=== PATIENT | female | born 1945 | race Caucasian/White ===

== ENCOUNTER 2025-07-16 16:07 | Emergency (ER) | payer MEDICARE, SELFPAY ==
[2025-07-16 16:07] VITALS: BP 138/84; PULSE 83; RESP 18; TEMP 36.7; O2SAT 98; BMI 23.0
[2025-07-16 16:24] VITALS: PULSE 86; RESP 18; O2SAT 98
--- NOTE | 2025-07-16 16:33 | PC.NURSE ---
Patient to er from [facility], c/o 04/08 right upper leg and right knee pain x 6 days, patient denies trauma, no h/o falls, skin is warm dry and sliglty pale, chart up to be seen by er provider.
--- NOTE | 2025-07-16 16:55 | XR_ITS ---
EXAMINATION: Right femur 2 views TECHNIQUE: AP lateral right femur 2 views Date and time: July 16, 2025, 1655 hours INDICATIONS: Pain with standing involving the right femur today. 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
--- NOTE | 2025-07-16 16:57 | EDNOTE_ITS ---
ED General RME/HPI General Chief complaint: Extremity Injury, Lower Stated complaint: LEG PAIN Time Seen by Provider: 07/16/25 16:13 Arrival date/time: 07/16/25 16:07 CC: Right upper leg pain HPI patient states onset of pain approximately last Wednesday after pushing a chair out of the way while in her wheelchair. 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 Within 24 hours patient experienced pain in the upper right leg. It is site specific to the distal portion of the quadriceps and lateral aspect of the quadricep. No pain in the calf no swelling. Ongoing for past several days patient presents to the ER via EMS who report stable vital signs patient is awake alert and oriented nontoxic-appearing and not in any acute distress. Note: Patient is not on any blood thinners. Related Data Previous Rx's ?Medication ?Instructions ?Recorded meloxicam 7.5 mg tablet 7.5 mg PO QDAY #20 tabs 06/30 03/23 Allergies Allergy/AdvReac Type Severity Reaction Status Date / Time Sulfa (Sulfonamide Allergy Unknown UNKNOWN Unverified 09/19/11 00:34 Antibiotics) Review of Systems Review of Systems Narrative Review of Systems: GEN: No fever, no chills, no weight loss EYES: No discharge, no visual changes, no pain HEENT: No ear pain, no congestion, no sore throat PULM: No shortness of breath, no cough, no congestion CV: No chest pain, no dyspnea on exertion, no palpitations GI: No nausea, no vomiting, no diarrhea, no pain, no constipation : No frequency, no urgency, no dysuria MUSC/SKEL: No joint pain, no back pain, + leg pain SKIN: No rash PSYCH: No hallucinations, no depression HEME/LYMPH: No easy bleeding or bruising tendencies NEURO: No weakness, no headache Past Medical History Past Medical History NEUROLOGIC: Positive Neurological Disorders and Cerebrovascular Accident (left sided weakness deficit, 2011) CARDIAC: Positive Hypercholesterolemia and Hypertension; Negative Congestive Heart Failure RESPIRATORY: Negative Chronic Obstructive Pulmonary Disease (COPD) GENITOURINARY: Negative Renal Disease ENDOCRINE: Negative Diabetes Mellitus Type 1 or Diabetes Mellitus Type 2 Surgical History SURGICAL: Positive Hysterectomy (1982, do to cervical cancer no chemo or radiation) OTHER SURGICAL HX: removal cyst to right ovary 1985 Social History SMOKING STATUS: Former smoker ED Exam Narrative Physical exam: [General: Not in any acute distress Head normocephalic HEENT: Within acceptable limits Neck is supple nontender Chest equal chest rise nontender to palpation Respiratory: Clear to auscultation no wheezes crackles or rubs CV: Rate rhythm is regular no murmurs rubs or clicks Abdomen is soft nontender no masses positive bowel sounds all 4 quadrants Back: No CVA tenderness no spinous process tenderness from cervical spine thoracic and lumbar spine Skin: Intact no petechiae rash induration ulceration or crepitus Extremities: Decreased range of motion of left lower extremity secondary old CVA, strength is 2 out of 5, right lower extremity strength is 5 out of 5 full range of motion including straight relays. Tenderness to palpation to the distal quadricep, and lateral aspect of the quadricep no significant edema or erythema or ecchymosis. No posterior fossa tenderness with palpation no calf tenderness with palpation no red streaks erythema or tenderness in the medial aspect of the thigh. Cap refill in the toes less than 2 seconds neurosensory intact. Moving upper extremities against resistance cap refill less than 2 seconds neurosensory intact Neuro: Awake alert oriented x3 Course Course Course Narrative: Patient needs a follow-up outpatient with pre and post MRI of the femur and then follow-up with primary care doctor with the results of that. Patient and [facility] power of deputy attorney general at bedside are both made aware of this. Will discharge the patient home with a copy of the read to follow-up with the PCP for outpatient referral. Quality Measures none Orders Category Date Time Status US venous doppler LE RT Stat Exams 07/16/25 17:00 Completed XR femur RT 2V Stat Exams 07/16/25 16:55 Completed Vital Signs Vital signs: Vital Signs Temperature 98.1 F 07/16/25 16:07 Pulse Rate 83 07/16/25 16:07 Respiratory Rate 18 07/16/25 16:07 Blood Pressure 138/84 H 07/16/25 16:07 Pulse Oximetry (%) 98 07/16/25 16:07 Oxygen Delivery Method Room Air 07/16/25 16:07 Discharge Plan Plan Patient Disposition: HOME (Self Care) Patient condition on transfer: Stable Prescriptions/Referrals Prescriptions/Med Rec: New meloxicam 7.5 mg tablet 7.5 mg PO QDAY Qty: 20 0RF Referrals: No Primary/Family,Physician [Referring Provider] - In 1 week Marcelo Zimmer MD [Primary Care Provider, Family Practice] - In 1 week Problem List Clinical Impression: Osteolytic lesion, Pain in right femur Patient/Caregiver Discharge Instructions Other Activity Instructions:: Plain film of your femur shows an osteolytic metastasis, that requires MRI outpatient basis. Please follow-up. Avoid any heavy weight on the leg. Use the leg only for transfers that are necessary. If there is a worsening of symptoms return to the emergency room for reevaluation. Will prescribe you meloxicam. Take this instead of the Tylenol see if you get temporary pain relief. Print Language: Occitan Stand Alone Forms: Carlie Award Info., Patient Portal Info Letter, Work/School Release PA/PHOTOTYPESETTING EQUIPMENT MONITOR Supervising Physician PA/PHOTOTYPESETTING EQUIPMENT MONITOR Supervising Physician: Fransico Pace ENP [facility] Meds/Rx considered, not ordered None Labs/Rad/Tests considered, not ordered None EKG EKG not done Labs Labs: none Imaging Imaging interpretation: interpreted by me Imaging Interpretation(s): Ultrasound is negative for DVT X-ray of the femur is positive for osteolytic metastasis at a site that corresponds with the patient's clinical complaint.
--- NOTE | 2025-07-16 17:00 | XR_ITS ---
Examination: Duplex scan of the lower extremity, unilateral right Date and time of exam: July 16, 2025, 1827 hours INDICATIONS: Right leg and thigh pain with standing today Technique: Duplex scan of the extremity veins using B-mode/grayscale imaging and Doppler spectral analysis and color flow Attention is directed to internal echogenicity, compression and augmentation involving these veins, color flow assessment, spectral analysis Findings: Major deep venous structures in the extremity demonstrate normal course and caliber. There is no evidence of deep vein thrombosis. Normal color flow and spectral analysis Impression: Negative for DVT..
[2025-07-16 18:42] VITALS: BP 149/88; PULSE 76; PULSE 78; RESP 18; TEMP 36.8; O2SAT 98
[2025-07-16] MEDS: IBUPROFEN TAB 600 MG TABLET PO (20:13)
[2025-07-16 21:05] VITALS: BP 172/65; PULSE 76; RESP 18; TEMP 36.7; O2SAT 99
== END 2025-07-16 21:06 | disposition home or self-care (01) ==
PROVIDERS: Emergency Provider Emergency Medicine; PCP Family Medicine
DX: M89.551 Osteolysis, right thigh (principal)
CPT/HCPCS: 73552; 93971; 99283; A9270

== ENCOUNTER 2025-07-24 10:50 | Emergency (ER) | payer MEDICARE, SELFPAY ==
[2025-07-24 10:51] VITALS: PULSE 76; RESP 18; O2SAT 98; BMI 26.5
--- NOTE | 2025-07-24 10:54 | XR_ITS ---
EXAMINATION: XR chest 1V ORDERING PROVIDER: Angie Day MD HISTORY: cp TECHNIQUE: Single portable AP radiograph of the chest. COMPARISON: 09/23/2011, chest radiographs. FINDINGS: Cardiac silhouette not enlarged. Calcifications aortic arch. Emphysematous changes. 10.8 cm masslike opacity apical segment left upper lobe with scattered underlying air bronchograms. Retrocardiac opacities. Diffuse osteopenia and moderate bony degenerative changes. IMPRESSION: Left upper lobe 10.8 cm masslike opacity and retrocardiac opacities. Recommend correlation with CT chest.
--- NOTE | 2025-07-24 10:54 | XR_ITS ---
EXAMINATION: XR shoulder LT min 2V ORDERING PROVIDER: Angie Day MD HISTORY: pain TECHNIQUE: 3 radiographs of the left shoulder were obtained. COMPARISON: None. FINDINGS: No acute fracture or dislocation. Moderate degenerative changes of the acromioclavicular and glenohumeral joints. Diffuse osteopenia. In the apical segment of the left upper lobe there is a 10.8 cm masslike density. Underlying bronchograms and lung parenchyma is identified. There vasculopathic changes. IMPRESSION: 1. No acute fracture or dislocation. 2. Left upper lobe 10.8 cm masslike density. Recommend correlation with chest CT.
--- NOTE | 2025-07-24 10:54 | EKG_ITS ---
[facility] Test Date: 2025-07-24 Pat Name: CINDY VAUGHN Department: Room: - Gender: Female Change Management Director: : 1945 Requested By: Angie Sheffield Order Number: [id number] Reading MD: Angie Sheffield Measurements Intervals [place] Rate: 88 P: 45 NV: 136 QRS: 26 QRSD: 85 T: 83 QT: 334 QTc: 405 Interpretive Statements SINUS RHYTHM ST DEVIATION AND MODERATE T-WAVE ABNORMALITY, CONSIDER ANTERIOR ISCHEMIA [-0.1+ mV T-WAVE IN V3/V4] No previous ECG available for comparison /store/S0/[id number].pdf
--- NOTE | 2025-07-24 10:54 | XR_ITS ---
EXAMINATION: US venous doppler UE LT HISTORY: swelling, dvt COMPARISON: None. FINDINGS: Barajas scale, color doppler, and spectral waveforms of the left upper extremity veins. The imaged veins are unremarkable without evidence of internal thrombus. Spectral Doppler imaging demonstrates normal wave forms. The overlying soft tissues are unremarkable. IMPRESSION: Negative for deep venous thrombosis.
--- NOTE | 2025-07-24 10:57 | PD.EDCHEST ---
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 Patient states the left shoulder pain began 1 week ago, without injury, and remaining constant since. Described as aching in sensation, rating as mild. Patient states the chest pain also began 1 week ago and occurring on/off since onset. Located most to the left side just below the left breast. No known modifying or aggravating factors. Denies any fevers, chills, nausea, vomiting. Related Data Previous Rx's ?Medication ?Instructions ?Recorded meloxicam 7.5 mg tablet 7.5 mg PO QDAY #20 tabs 07/16/25 Allergies Allergy/AdvReac Type Severity Reaction Status Date / Time Sulfa (Sulfonamide Allergy Unknown UNKNOWN Verified 07/24/25 16:25 Antibiotics) Review of Systems Review of Systems Systems Reviewed: All systems reviewed, normal except as documented Past Medical History Past Medical History NEUROLOGIC: Positive Neurological Disorders and Cerebrovascular Accident (2012 left arm contracture) CARDIAC: Positive Hypercholesterolemia and Hypertension OTHER HISTORY: Positive Cancer and Cervical Cancer Surgical History SURGICAL: Positive Hysterectomy Social History SMOKING STATUS: Former smoker ED Exam General Limitations: Present no limitations General appearance: Present alert and in no apparent distress Head Head exam: Present atraumatic and normocephalic Eye Eye exam: Present normal appearance, PERRL and EOMI ENT ENT exam: Present normal exam, normal oropharynx and mucous membranes moist Neck Neck exam: Present normal inspection, full ROM and trachea midline Chest Chest inspection: Present normal inspection and symmetric chest wall rise Respiratory Respiratory exam: Present normal lung sounds bilaterally; Absent respiratory distress Cardiovascular Cardiovascular exam: Present regular rate, normal rhythm and normal heart sounds Abdominal Exam Abdominal exam: Present soft; Absent distention, tenderness or guarding Extremities Exam Extremities exam: Present full ROM and other (Tenderness to the left shoulder, no lesions appreciated , patient with contractures on the left upper extremity, unable to range left upper extremity; no issues with right upper extremity nor bilateral lower extremities) Neurological Exam Neurological exam: Present alert and other (Patient with baseline weakness in the left upper extremity, bedbound secondary to chronic weakness) Psychiatric Psychiatric exam: Present normal affect and normal mood Skin Skin exam: Present warm, dry, intact and normal color Course Quality Measures none Orders Category Date Time Status CT Screening NOW Care 07/24/25 14:44 Active EKG (ED ONLY) *Do not use* NOW Care 07/24/25 10:55 Completed Referral - Aluminizer Stat Cons 07/24/25 17:[address] chest w con Stat Exams 07/24/25 14:43 Completed CXR [XR chest 1V] Stat Exams 07/24/25 10:54 Completed EKG (ED Only) Stat Exams 07/24/25 10:54 Draft US venous doppler UE LT Stat Exams 07/24/25 10:54 Completed XR shoulder LT min 2V Stat Exams 07/24/25 10:54 Completed CBC Stat Lab 07/24/25 11:00 Completed CMP [Comprehensive Metabolic Panel] Stat Lab 07/24/25 11:00 Completed INR [Prothrombin Time with INR] Stat Lab 07/24/25 11:00 Completed Troponin I Stat Lab 07/24/25 11:00 Completed Troponin I Stat Lab 07/24/25 14:26 Completed Aspirin [Ecotrin] Med 07/24/25 14:41 Discontinued 81 mg PO X1 ONE Ringers Lactated 1000 ml [Lactated Ringers] 1,000 ml Med 07/24/25 14:44 Discontinued IV 999 mls/hr Vital Signs Vital signs: Vital Signs Temperature 98.1 F 07/24/25 11:11 Pulse Rate 90 07/24/25 11:11 Respiratory Rate 17 07/24/25 11:11 Blood Pressure 133/73 H 07/24/25 11:11 Pulse Oximetry (%) 95 07/24/25 11:11 Oxygen Delivery Method Room Air 07/24/25 11:11 Pulse ox is 95% on room air which is adequate. Chest Pain MDM Narrative MDM Narrative:: Maryellen Dia am scribing for and in the presence of Dr. Day. Patient is an 79-year-old female this in the emergency department concerns for left shoulder and chest pain. Vital signs and exam as listed. Concern for ACS arrhythmia electrolyte abnormality among others. Ordered labs, EKG, chest x-ray as well as x-ray of the shoulder and upper extremity ultrasound. Offered medication for symptom leaf. EKG performed today at 1117 in the morning notable for sinus rhythm heart rate 88, normal intervals, nonspecific T wave changes, not a cardiac alert. Interpreted by me. Labs without acute hematologic abnormality, no acute evidence of renal dysfunction however patient does have an elevated calcium will provide patient with fluids. Troponin not elevated. Ultrasound of the upper extremity without evidence of DVT. Chest x-ray with evidence of left upper lung mass approximately [address] chest. X-ray of the left shoulder without any acute abnormalities other than redemonstration of the lung mass. Ordered CT scan of the chest that showed a spiculated lung mass involving the vasculature of the mediastinum, as well as metastases to the thoracic spine. Initiated transfer for cardiothoracic surgery. Updated patient, patient in agreement as he is hemodynamically stable not in distress 1800h: Care signed out to Dr. Hart pending transfer. 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, hypertension, diabetes How is presenting disease/condition affected by chronic disease/condition?: exacerbated by Evaluation data The following diagnostics were reviewed and interpreted by me:: lab results, radiology exam(s) and EKG tracing(s) Lab and/or radiology exams considered but not ordered:: None Interpretation Summary: Ordering Physician: Angie Day MD Date of Service: 07/24/25 Procedure(s): XR chest 1V Accession Number(s): [id number] cc: Pablo San MD; Marcelo Zimmer MD; Angie Day MD~ EXAMINATION: XR chest 1V ORDERING PROVIDER: Angie Day MD HISTORY: cp TECHNIQUE: Single portable AP radiograph of the chest. COMPARISON: 09/23/2011, chest radiographs. FINDINGS: Cardiac silhouette not enlarged. Calcifications aortic arch. Emphysematous changes. 10.8 cm masslike opacity apical segment left upper lobe with scattered underlying air bronchograms. Retrocardiac opacities. Diffuse osteopenia and moderate bony degenerative changes. IMPRESSION: Left upper lobe 10.8 cm masslike opacity and retrocardiac opacities. Recommend correlation with CT chest. Dictated By: Pablo San MD Signed By: <Electronically signed by Pablo San MD in OV> 07/24/25 1240 Ordering Physician: Angie Day MD Date of Service: 07/24/25 Procedure(s): XR shoulder LT min 2V Accession Number(s): [id number] cc: Pablo San MD; Marcelo Zimmer MD; Angie Day MD~ EXAMINATION: XR shoulder LT min 2V ORDERING PROVIDER: Angie Day MD HISTORY: pain TECHNIQUE: 3 radiographs of the left shoulder were obtained. COMPARISON: None. FINDINGS: No acute fracture or dislocation. Moderate degenerative changes of the acromioclavicular and glenohumeral joints. Diffuse osteopenia. In the apical segment of the left upper lobe there is a 10.8 cm masslike density. Underlying bronchograms and lung parenchyma is identified. There vasculopathic changes. IMPRESSION: 1. No acute fracture or dislocation. 2. Left upper lobe 10.8 cm masslike density. Recommend correlation with chest CT. Dictated By: Pablo San MD Signed By: <Electronically signed by Pablo San MD in OV> 07/24/25 1238 Ordering Physician: Angie Day MD Date of Service: 07/24/25 Procedure(s): US venous doppler UE LT Accession Number(s): [id number] cc: Pablo San MD; Marcelo Zimmer MD; Angie Day MD~ EXAMINATION: US venous doppler UE LT HISTORY: swelling, dvt COMPARISON: None. FINDINGS: Barajas scale, color doppler, and spectral waveforms of the left upper extremity veins. The imaged veins are unremarkable without evidence of internal thrombus. Spectral Doppler imaging demonstrates normal wave forms. The overlying soft tissues are unremarkable. IMPRESSION: Negative for deep venous thrombosis. Dictated By: Pablo San MD Signed By: <Electronically signed by Pablo San MD in OV> 07/24/25 1243 Ordering Physician: Angie Day MD Date of Service: 07/24/25 Procedure(s): CT chest w con Accession Number(s): [id number] cc: Amrit Talavera MD; Marcelo Zimmer MD; Angie Day MD~ Examination: CT chest with intravenous contrast 2-D sagittal and coronal reconstructions Exam date and time: July 24, 2025, 1638 hours INDICATIONS: Sudden onset chest pain today, chest x-ray today left upper lobe 10.8 cm masslike opacity and retrocardiac opacities CTDI:vol (mGy) 10.4 DLP: (mGycm) 247 Technique: Multiple axial sections of the thorax have been obtained. Sections have been obtained, 3 mm slice thickness. Mediastinal and lung density settings have been obtained. Intravenous contrast administered, 60 cc Isovue-370. 2-D sagittal, coronal images obtained. Low dose protocols were performed. One or more of the following dose reduction techniques were used; automated exposure control, adjustment of the mA and/or KV according to patient size, use of iterative reconstruction technique. Findings: Left upper lobe pulmonary mass spiculated margins, 9.1 x 9.5 x 7.4 cm This mass is invading the left mediastinum in the tracheobronchial region and compressing the left main pulmonary artery and pulmonary artery branches on the left side Left hilar lymphadenopathy No aortic aneurysm No pulmonary artery filling defects 8 mm pulmonary nodule left upper lobe 4 mm pulmonary nodule right upper lobe Mild left pleural effusion 30 mm soft tissue mass destroying the medial left clavicle No visualized liver or splenic lesion Gallbladder partly visualized Bilateral metastatic adrenal masses, the largest on the left side 5.1 cm No hydronephrosis Metastatic mass destroying the medial aspect right fourth rib axial image 56, Cortical bone destruction upper T2 vertebral body image 116 IMPRESSION: Left upper lobe pulmonary mass, spiculated margins, 9.1 x 9.5 x 7.4 cm invading the left mediastinum and compressing the left main pulmonary artery Left hilar lymphadenopathy Metastatic pulmonary nodules Metastatic soft tissue mass destroying the medial left clavicle Bilateral metastatic adrenal masses Metastatic soft tissue mass destroying the medial aspect right fourth rib Osseous metastatic disease destroying the upper T2 vertebral body, recommend MRI of thoracic cervical and lumbar spine post contrast follow-up to exclude epidural tumor compressing upon the spinal cord Dictated By: Amrit Talavera MD Signed By: <Electronically signed by Amrit Talavera MD in OV> 07/24/25 1704 Medications / Prescriptions Medications or Prescriptions considered but not ordered:: None Medication administrations:: Medication Administration History Discontinued Medications Aspirin (Aspirin Ec 81 Mg Tabec) 81 mg PO X1 ONE Stop: 07/24/25 14:42 Last Admin: 07/24/25 15:20 Dose: 81 mg Documented By: DELANO Lactated Ringer's (Lactated Ringers) 1,000 mls @ 999 mls/hr IV .Q1H1M ONE Stop: 07/24/25 15:44 Last Infusion: 07/24/25 16:33 Dose: Infused Documented By: Admin: 07/24/25 15:21 Dose: 999 mls/hr Documented By: DELANO See above Consultations Consultation(s) initiated? (list below): Yes Consultation #1 (Physician, Specialty, Details): See MDM Diagnosis Chest Pain Differential Diagnosis: pneumothorax, stable angina, unstable angina pectoris, atypical chest pain, costochondritis and chest pain Most likely diagnosis given after review of the tests above:: See MDM Admission Indicated Admission indicated?: not indicated Explain why admission is indicated or not indicated:: Signed out pending final disposition. Admission Request Was there a request for admission?: No Disposition Plan Disposition Plan: other (specify) (Signed out to Dr. Hart ) Discharge Plan Plan Patient Disposition: Xfer Skilled Nsg Fac (SNF) Prescriptions/Referrals Prescriptions/Med Rec: No Action meloxicam 7.5 mg tablet 7.5 mg PO QDAY Qty: 20 0RF Problem List Clinical Impression: Left shoulder pain, Chest pain, Hypercalcemia, Mass of lung Patient/Caregiver Discharge Instructions Print Language: Setswana Stand Alone Forms: Carlie Award Info., Patient Portal Info Letter
[2025-07-24 11:11] VITALS: BP 133/73; PULSE 90; RESP 17; TEMP 36.7; O2SAT 95
[2025-07-24 11:26] LABS: Basophils # (Auto) 0.0 Thou/mm3 (0.0-0.2); Basophils % (Auto) 0 % (0-2.5); Eosinophils # (Auto) 0.1 Thou/mm3 (0.0-0.5); Eosinophils % (Auto) 2 % (0-10); Hematocrit 35.8 % (36.0-46.0); Hemoglobin 11.9 g/dL (12.0-16.0); Immature Granulocytes Auto 0.03 Thou/mm3 (0.00-0.00); Lymphocytes # (Auto) 1.1 Thou/mm3 (1.0-4.8); Lymphocytes % (Auto) 15 % (10-50); Mean Corpuscular HGB Conc 33.2 g/dl (31.0-37.0); Mean Corpuscular Hemoglobin 30.6 pg (25.0-35.0); Mean Corpuscular Volume 92 fL (80-100); Monocytes # (Auto) 0.8 Thou/mm3 (0.0-0.8); Monocytes % (Auto) 10 % (0-12); Neutrophils # (Auto) 5.5 Thou/mm3 (1.8-7.7); Neutrophils % (Auto) 73 % (37-80); Nucleated Red Blood Cell # 0.00 Thou/mm3 (0.00-0.00); Nucleated Red Blood Cell % 0 /100 WBC (0); Platelet Count 246 Thou/mm3 (140-440); RDW Standard Deviation 43.5 fL (36.4-46.3); Red Blood Count 3.89 Miln/mm3 (4.00-5.20); White Blood Count 7.5 Thou/mm3 (3.6-11.0)
[2025-07-24 12:00] LABS: Alanine Aminotransferase < 7 U/L (10-49); Albumin, Serum 4.3 gm/dL (3.4-4.8); Albumin/Globulin Ratio 1.7 (1.2-2.2); Anion Gap 13 (7-16); Aspartate Amino Transferase 21 U/L (0-34); BUN/Creatinine Ratio 42 Ratio (12-20); Bilirubin,Total 1.1 mg/dL (0.3-1.2); Blood Urea Nitrogen 25 mg/dL (9-23); Calcium 11.4 mg/dL (8.3-10.6); Calcium (Corrected) 11.4 mg/dL (8.5-10.1); Carbon Dioxide 26.0 mMol/L (20.0-31.0); Chloride 100 mMol/L (98-107); Creatinine (Component) 0.6 mg/dL (0.6-1.3); Estimated Creatinine Clearance 69.2 mL/min (>60); Globulin 2.5 gm/dL (2.3-3.5); Glucose 76 mg/dL (74-106); Osmolality,Calculated 280 (275-295); Potassium 4.0 mMol/L (3.4-5.1); Sodium 139 mMol/L (136-145); Total Protein 6.8 gm/dL (5.7-8.2); Troponin I 0.024 ng/mL (0.0-0.045); eGFR > 60 See Note
[2025-07-24 12:35] LABS: Alkaline Phosphatase 88 U/L (46-116)
[2025-07-24 12:58] LABS: INR 1.1 (0.9-1.3); Prothrombin Time 11.7 Seconds (9.0-12.2)
--- NOTE | 2025-07-24 14:43 | XR_ITS ---
Examination: CT chest with intravenous contrast 2-D sagittal and coronal reconstructions Exam date and time: July 24, 2025, 1638 hours INDICATIONS: Sudden onset chest pain today, chest x-ray today left upper lobe 10.8 cm masslike opacity and retrocardiac opacities CTDI:vol (mGy) 10.4 DLP: (mGycm) 247 Technique: Multiple axial sections of the thorax have been obtained. Sections have been obtained, 3 mm slice thickness. Mediastinal and lung density settings have been obtained. Intravenous contrast administered, 60 cc Isovue-370. 2-D sagittal, coronal images obtained. Low dose protocols were performed. One or more of the following dose reduction techniques were used; automated exposure control, adjustment of the mA and/or KV according to patient size, use of iterative reconstruction technique. Findings: Left upper lobe pulmonary mass spiculated margins, 9.1 x 9.5 x 7.4 cm This mass is invading the left mediastinum in the tracheobronchial region and compressing the left main pulmonary artery and pulmonary artery branches on the left side Left hilar lymphadenopathy No aortic aneurysm No pulmonary artery filling defects 8 mm pulmonary nodule left upper lobe 4 mm pulmonary nodule right upper lobe Mild left pleural effusion 30 mm soft tissue mass destroying the medial left clavicle No visualized liver or splenic lesion Gallbladder partly visualized Bilateral metastatic adrenal masses, the largest on the left side 5.1 cm No hydronephrosis Metastatic mass destroying the medial aspect right fourth rib axial image 56, Cortical bone destruction upper T2 vertebral body image 116 IMPRESSION: Left upper lobe pulmonary mass, spiculated margins, 9.1 x 9.5 x 7.4 cm invading the left mediastinum and compressing the left main pulmonary artery Left hilar lymphadenopathy Metastatic pulmonary nodules Metastatic soft tissue mass destroying the medial left clavicle Bilateral metastatic adrenal masses Metastatic soft tissue mass destroying the medial aspect right fourth rib Osseous metastatic disease destroying the upper T2 vertebral body, recommend MRI of thoracic cervical and lumbar spine post contrast follow-up to exclude epidural tumor compressing upon the spinal cord
[2025-07-24 14:56] LABS: Troponin I 0.021 ng/mL (0.0-0.045)
[2025-07-24] MEDS: ASPIRIN EC 81 MG TABEC PO (15:20)
[2025-07-24] MEDS: RINGERS LACTATED 1000 ML 1,000 ML 999 ML IV (15:21)
--- NOTE | 2025-07-24 17:27 | PC.CC ---
Addendum entered by Yohana Sanchez RN 07/24/25 19:07: transfer packet w/ 1CD and handoff report given to LALY Tijerina. He will continue transfer process Addendum entered by Yohana Sanchez RN 07/24/25 18:56: [email or web address] between Dr. Cha and Dr. Hart. Per Karen pt is waitlisted for a bed and will back at 1999. I provided ED contact information. Dr. Cha cardio thoracic is willing to consult. Per Karen they are waiting for Internal Medicine to accept or decline patient. Addendum entered by Yohana Sanchez RN 07/24/25 18:04: 1800: called ED LALY Ramirez, she will get the vs. 1756: called Frida, no answer. 1741: called and spoke to [facility], transfer request initated. She transfered me to the nurse Karen. Clinicals provided. no recent v/s entered. I will call Noni back when vs are updated. 1740: called Phillip, spoke to Karolyn. She will review the clinicals and call back. Addendum entered by Yohana Sanchez RN 07/24/25 17:32: transfer packet and cd created Original Note: received call from Dr. Day for transfer request for cardio/thoracic surgeon for Metastatic soft tissue mass destroying the medial left clavicle and Left upper lobe pulmonary mass, spiculated margins, 9.1 x 9.5 x 7.4 cm invading the left mediastinum and compressing the left main pulmonary artery. [facility]
[2025-07-24 18:05] VITALS: BP 113/63; PULSE 74; RESP 18; TEMP 36.7; O2SAT 95
--- NOTE | 2025-07-24 18:41 | EDNOTE_ITS ---
Emergency Room Addendum <Viviane Cole - Last Filed: 07/24/25 18:41> Addendum Narrative: 1800: Care assumed from Dr. Day, the previous shift emergency physician. Past medical, surgical, social and family history reviewed. Vitals and home medications reviewed. Results and treatment plan discussed. I will assume the care of the patient at this time and will follow the patient. Please refer to the emergency department record for history and examination from initial visit. <Levi Hart DO - Last Filed: 07/25/25 02:24> Addendum Narrative: 1800: Care assumed from Dr. Day, the previous shift emergency physician. Past medical, surgical, social and family history reviewed. Vitals and home medications reviewed. Results and treatment plan discussed. I will assume the care of the patient at this time and will follow the patient. Please refer to the emergency department record for history and examination from initial visit. I spoke with cardiothoracic surgeon, Dr. Cha at [facility] who states that he will consult on this patient. I then spoke to the hospitalist, Dr. Garay who accepts this patient in transfer for her probable stage IV metastatic lung cancer just diagnosed in the emergency room this evening.
--- NOTE | 2025-07-24 21:08 | PC.NURSE ---
[facility] NURSE CALLED AND INFORMED ME THAT THEY STILL NO ROOM, THEY WILL CHECK AGAIN AT 0100.
[2025-07-24 22:21] VITALS: BP 130/64; PULSE 80; RESP 19; TEMP 36.8; O2SAT 97
[2025-07-25 03:00] VITALS: BP 120/81; PULSE 77; RESP 16; O2SAT 98
[2025-07-25 03:51] VITALS: BP 124/73; PULSE 86; RESP 18; TEMP 36.8; O2SAT 100
[2025-07-25 03:54] VITALS: BP 124/73; PULSE 83; RESP 18; TEMP 36.8; O2SAT 100
--- NOTE | 2025-07-25 07:44 | PC.CM ---
I spoke to Keturah and patient went to [facility] at 0358.
== END 2025-07-25 03:58 | disposition skilled nursing facility (03) ==
PROVIDERS: Emergency Provider Emergency Medicine; PCP Family Medicine
DX: E83.52 Hypercalcemia (principal); R91.8 Other nonspecific abnormal finding of lung field; R07.9 Chest pain, unspecified; M25.512 Pain in left shoulder; R94.31 Abnormal electrocardiogram [ECG] [EKG]; E78.00 Pure hypercholesterolemia, unspecified; I10 Essential (primary) hypertension; C79.51 Secondary malignant neoplasm of bone; I69.354 Hemiplegia and hemiparesis following cerebral infarction affecting left non-dominant side; Z87.891 Personal history of nicotine dependence; Z74.01 Bed confinement status
CPT/HCPCS: 36415; 71045; 71260; 73030; 80053; 84484; 85025; 85610; 93005; 93971; 96360; 99284; A4649; J7120; Q9967; A9270